=== PATIENT | male | born 1980 | race Hispanic/Latino ===

== ENCOUNTER → 2017-01-24 | Outpatient (CLI) | payer OTHER ==
--- NOTE | 2017-01-24 16:16 | REP ---
LEFT FOOT, FOUR VIEWS: HISTORY: Contusion. There is no acute fracture or dislocation. The joint spaces are normal in appearance. IMPRESSION: There is no acute fracture or dislocation. Signed by Akshat Ward MD 01/24/2017 04:23 P
== END ==
LOC: M WUC 14:07
PROVIDERS: ATTEND Physician Assistant
DX: S90.32XA Contusion of left foot, initial encounter (principal); X58.XXXA Exposure to other specified factors, initial encounter; Y92.89 Other specified places as the place of occurrence of the external cause; Y99.9 Unspecified external cause status

== ENCOUNTER → 2017-02-16 | Outpatient (CLI) | payer OTHER ==
--- NOTE | 2017-02-17 02:57 | REP ---
Clinical: Trauma. Crush injury. Technique: AP, lateral, bilateral oblique views of the right first toe. Findings: No acute fracture or dislocation. Skeletal structures, joint spaces, and surrounding soft tissues appear relatively normal for age. Impression: No acute fracture or dislocation. Signed by Jcarlos Ash MD 02/17/2017 02:49 A
== END ==
LOC: M ADAMS 13:04
PROVIDERS: ATTEND Physician Assistant
DX: M79.674 Pain in right toe(s) (principal)